=== PATIENT | female | born 1990 | race Caucasian/White ===

== ENCOUNTER 2017-03-13 12:00 | Inpatient (IN) | payer BC, OTHER ==
[~2017-03-13] VITALS: Ht 152.4 cm; Wt 52.2 kg
[2017-03-13] MEDS ORDERED: ONDA8TAB8 PO (12:27)
[2017-03-13] MEDS ORDERED: TRAZ1TAB14 PO (12:27)
[2017-03-13] MEDS ORDERED: PROP60TA14 PO (12:27)
[2017-03-13 13:59] LABS: CONTROL LINE HCG INT CTR LINE PRESENT
[2017-03-13 14:13] LABS: MEAN CORPUSCULAR HEMOGLOBIN 31.9 pg (27.0-33.0); MEAN CORPUSCULAR HGB CONC 34.6 g/dl (32.0-36.5); MEAN CORPUSCULAR VOLUME 92.4 fl (80.0-96.0); RED CELL DISTRIBUTION WIDTH 12.3 % (11.5-14.5); WHITE BLOOD COUNT 6.8 K/mm3 (4.0-10.0)
[2017-03-13 14:16] LABS: ALBUMIN/GLOBULIN RATIO 1.18 (1.00-1.93); ALKALINE PHOSPHATASE 52 U/L (45-117); ALT/SGPT 19 U/L (12-78); ANION GAP 4 MEQ/L (8-16); AST/SGOT 16 U/L (15-37); BILIRUBIN,DIRECT 0.1 MG/DL (0.0-0.2); BILIRUBIN,TOTAL 0.6 MG/DL (0.2-1.0); BLOOD UREA NITROGEN 8 MG/DL (7-18); CALCIUM LEVEL 9.1 MG/DL (8.5-10.1); CARBON DIOXIDE LEVEL 30 MEQ/L (21-32); CHLORIDE LEVEL 107 MEQ/L (98-107); CREATININE FOR GFR 0.77 MG/DL (0.55-1.02); GLOMERULAR FILTRATION RATE > 60.0 (>60); GLUCOSE, FASTING 84 MG/DL (70-105); POTASSIUM SERUM 4.6 MEQ/L (3.5-5.1); SODIUM LEVEL 141 MEQ/L (136-145); TOTAL PROTEIN 7.4 GM/DL (6.4-8.2)
[2017-03-13 14:18] LABS: METHADONE URINE NEGATIVE (NEGATIVE)
[2017-03-13] MEDS ORDERED: LORazepam 1 MG TAB PO PRN (15:15)
[2017-03-13] MEDS ORDERED: ACETAMINOPHEN TAB 650MG DOSE (2X325MG) PO PRN (15:15)
[2017-03-13] MEDS ORDERED: MAALOX 30 ML SUSP *UDC PO PRN (15:15)
[2017-03-13] MEDS ORDERED: traZODone 100 MG TAB PO PRN (15:15)
[2017-03-13] MEDS ORDERED: MOM 30ML SUSPENSION UDC PO PRN (15:15)
[2017-03-13] MEDS ORDERED: TRAZ50TA11 PO (15:31)
[2017-03-13] MEDS ORDERED: PROP60CA PO (15:31)
[2017-03-13] MEDS: SERTRALINE HCL 50 MG TAB PO SCH (18:12)
[2017-03-13 19:32] VITALS: BP 110/76
[2017-03-14 06:22] VITALS: BP 118/59
[2017-03-14] MEDS: PROPRANOLOL 60 MG LA CAP PO SCH (08:17)
[2017-03-14] MEDS: SERTRALINE HCL 50 MG TAB PO SCH (08:17)
[2017-03-14] MEDS ORDERED: PROPRANOLOL 20 MG TAB PO SCH (09:00)
--- NOTE | 2017-03-14 09:15 | HPEPDOC ---
Medical History and Physical Date of Admission Mar 13, 2017 at 15:09 History and Physical PCP: IRWIN Cole ATTENDING: Dr. Gabriel Aguirre HPI: 26yoF admitted to [facility] for PTSD with SI, being medically examined today. Pt at [place] with [employer] for 2 week training. Pt states she has some bugbites from being out in the feild and requests Benadryl cream. Denies any fevers, chills, weakness, fatigue, KERN, CP, SOB, cough, palpitations, abdominal pain, N/V/D or changes in bowel or bladder habits. 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 Tobacco use:denies ETOH: 2 drinks per week. Illicit Drugs: Denies IV Drug Use: Denies Tattoos done unprofessionally: Denies FAMHX: Mother: Alive, depression, H/O SI, DM, HTN Father: Alive, HTN Siblings: 2 sisters Alive, well Children: none Unexpected deaths due to medical reasons: None. ROS: As noted in HPI, otherwise 11pt ROS of systems reviewed and remarkable only for LMP 03/05/17. PE: GEN: 26yoF, appears stated age. Well-nourished, well developed. No acute distress. Alert and oriented x 3. Pleasant, interactive. HEENT: Normocephalic, atraumatic. Pupils are equal, round, and reactive to light. Extraocular movements are intact. No nystagmus appreciated. Sclera are nonicteric. Conjunctiva without injection. Nose midline. Nasal turbinates without bogginess. EACs both patent BL. TMs both visualized and arce with good cone of light, no bulging or erythema. No facial asymmetry. Moist mucous membranes. Dentition fair. Pharynx pink and moist, no cobblestoning. Neck supple , trachea midline. No lymphadenopathy or thyromegaly appreciated. CHEST: Regular rate and rhythm, +S1, +S2 LUNGS: Clear to auscultation bilaterally. No wheezes, rales, or rhonchi. Breathing appears symmetric and easy. Patient is speaking in full sentences. No accessory muscle use. ABD: Round, soft, non-tender, non-distended. +Bowel sounds throughout. No rebound or guarding. No costovertebral angle tenderness. EXT: Pulses 2+ bilaterally dorsalis pedis and radial. No lower extremity edema appreciated. SKIN: [place], dry, warm. Capillary refill <2sec. No rashes. A few bites are noted , no significant erythema, no drainage, no sign of infection. NEURO: Alert and oriented x 3. Cranial nerves III-XII are intact. No focal deficits appreciated. EKG: pending. A&P: 26yoF admitted to [facility] for PTSD with SI 1. Psych. Plan per Psychiatry. Obtain baseline EKG to assure the safety of psychiatric medications as they can prolong the QT interval. 2. Follow up with PCP on discharge. 3. Staff member Wendy present throughout exam. Vital Signs Vital Signs Date Time Temp Pulse Resp B/P (MAP) Pulse Ox O2 Delivery O2 Flow Rate FiO2 03/14/17 08:17 85 112/69 03/14/17 06:22 97.5 16 03/13/17 19:32 98 Room Air Laboratory Data Labs 24H Laboratory Tests 2 03/13/17 12:34: Anion Gap 4L, Glomerular Filtration Rate > 60.0, Calcium Level 9.1, Aspartate Amino Transf (AST/SGOT) 16, Alanine Aminotransferase (ALT/SGPT) 19, Alkaline Phosphatase 52, Total Bilirubin 0.6, Direct Bilirubin 0.1, Total Protein 7.4, Albumin 4.0, Albumin/Globulin Ratio 1.18, Thyroid Stimulating Hormone (TSH) 1.150, Human Chorionic Gonadotropin, Qual NEGATIVE, Salicylates Level < 1.7L, Urine Amphetamines Screen NEGATIVE, Urine Benzodiazepines Screen NEGATIVE, Urine Opiates Screen NEGATIVE, Urine Methadone Screen NEGATIVE, Acetaminophen Level < 2.0L, Urine Barbiturates Screen NEGATIVE, Urine Phencyclidine Screen NEGATIVE, Urine Cocaine Metabolite Screen NEGATIVE, Urine Cannabinoids Screen NEGATIVE, Ethyl Alcohol Level < 0.003 CBC/BMP Laboratory Tests 03/13/17 12:34 Red Blood Count 4.10, Mean Corpuscular Volume 92.4, Mean Corpuscular Hemoglobin 31.9, Mean Corpuscular Hemoglobin Concent 34.6, Red Cell Distribution Width 12.3 Home Medications Scheduled Propranolol HCl (Propranolol HCl ER) 60 Mg Cap, 60 MG PO DAILY Scheduled PRN Ondansetron (Ondansetron Odt) 8 Mg Tab, 8 MG PO for NAUSEA Trazodone HCl (Trazodone HCl) 50 Mg Tab, 50 MG PO QHS PRN for SLEEP Allergies Coded Allergies: No Known Allergies (Unverified , 03/13/17) Tianna Dwyer Mar 14, 2017 09:15
[2017-03-14] MEDS: VENLAFAXINE **XR** 37.5 MG CAPSULE PO SCH (13:32)
[2017-03-14] MEDS: diphenhydrAMINE CREAM 30GM TOP PRN ×2 (13:34→23:55)
[2017-03-14] MEDS: ONDANSETRON 4 MG ORAL DISINTEGRATING TAB (S0181) PO PRN (13:34)
[2017-03-14] MEDS ORDERED: HALOPERIDOL 5 MG/ML VIAL (J1630) IM STA (14:52)
[2017-03-14] MEDS ORDERED: LORazepam 2 MG/ML VIAL (J2060) IV STA (14:52)
[2017-03-14] MEDS ORDERED: HALOPERIDOL 5 MG/ML VIAL (J1630) As Ordered ONE (14:54)
[2017-03-14] MEDS ORDERED: LORazepam 2 MG/ML VIAL (J2060) As Ordered ONE (14:54)
[2017-03-14] MEDS ORDERED: LORazepam 2 MG/ML VIAL (J2060) IM STA (15:02)
[2017-03-14 18:00] VITALS: BP 119/71
--- NOTE | 2017-03-14 22:42 | ECGEPIP ---
Stationary ECG Study [facility] Test Date: 2017-03-14 Pat Name: DAI COLE Department: Room: [place] [address] Gender: F Spot Man: DILMA : 1990 Requested By: Tianna Dwyer Order Number: [id number] Reading MD: Gabriel Toussaint Measurements Intervals [place] Rate: 76 P: 46 NV: 130 QRS: 83 QRSD: 97 T: 62 QT: 385 QTc: 435 Interpretive Statements SINUS RHYTHM within normal limits. No prior ECG available for comparison at the time of interpretation. Electronically Signed On 03-14-2017 22:41:45 EDT by Gabriel Toussaint
[2017-03-14] MEDS: traZODone 50 MG TAB PO PRN (23:50)
[2017-03-15 07:04] VITALS: BP 106/59
[2017-03-15] MEDS: VENLAFAXINE **XR** 37.5 MG CAPSULE PO SCH (08:08)
[2017-03-15] MEDS: PROPRANOLOL 60 MG LA CAP PO SCH (08:08)
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
[2017-03-15 18:00] VITALS: BP 113/62
[2017-03-16 06:21] VITALS: BP 118/65
[2017-03-16] MEDS: ONDANSETRON 4 MG ORAL DISINTEGRATING TAB (S0181) PO PRN (07:27)
[2017-03-16] MEDS: PROPRANOLOL 60 MG LA CAP PO SCH (08:07)
[2017-03-16] MEDS: VENLAFAXINE **XR** 37.5 MG CAPSULE PO SCH (08:07)
[2017-03-16 18:00] VITALS: BP 116/68
[2017-03-16] MEDS: traZODone 50 MG TAB PO PRN (22:45)
--- NOTE | 2017-03-16 23:46 | IPN ---
DATE OF SERVICE: 03/15/2017 CHIEF COMPLAINT: Says feels okay. SUBJECTIVE: Seen for followup in the presence of staff. Says feels okay, and that she is less anxious, less depressed, says sleeps well. MENTAL STATUS EXAMINATION: Neat, cooperative, though somewhat superficially so, coherent. No agitation. No psychomotor retardation. Affect is restricted in range, but shows reactivity. She denies any suicidal thoughts or intents. No evidence of any homicidal ideas or intents, nor of any psychosis. Cognition is grossly intact. Her judgment and insight appear to be fair. ASSESSMENT: 1. Major depressive disorder, recurrent. 2. Posttraumatic stress disorder. PLAN: Continue current care, and observations, encourage participation in activities in the unit.
[2017-03-17 07:05] VITALS: BP 134/86
[2017-03-17] MEDS: VENLAFAXINE **XR** 37.5 MG CAPSULE PO SCH (08:38)
[2017-03-17] MEDS: PROPRANOLOL 60 MG LA CAP PO SCH (08:38)
--- NOTE | 2017-03-17 09:08 | IPN ---
DATE: 03/16/2017 CHIEF COMPLAINT: Says feels okay. SUBJECTIVE: Is seen for followup in the presence of staff. Says feels okay and that her moods have been good. Says she slept well. Appetite has been good. Denies any nightmares. MENTAL STATUS EXAMINATION: Neat, cooperative, though a bit superficially so. She is coherent. No agitation. No psychomotor retardation. Answers questions logically and briefly. Affect is restricted but reactive. Denies any thoughts of harming herself or anyone else. Currently, no evidence of psychosis. Cognition is grossly intact. Her judgment is fair, as is insight. ASSESSMENT: 1. Posttraumatic stress disorder (PTSD). 2. Major depressive disorder. PLAN: Continue current care and observations and the Effexor may need to be increased. Encourage participation in activities in the unit. She says that she plans to return to see her therapist upon discharge.
[2017-03-17 18:03] VITALS: BP 106/59
--- NOTE | 2017-03-17 19:42 | IPN ---
DATE: 03/17/2017 VITAL SIGNS: Temperature 96.9, pulse 99, respirations 18, blood pressure 134/86. CURRENT MEDICATIONS: - Effexor XR 37.5 mg every morning - trazodone 50 mg nightly as needed HISTORY OF PRESENT ILLNESS: Patient became agitated Friday afternoon and almost had to be restrained and given intramuscular (IM) medication. She did settle down fortunately. She did cooperate with the medications over the weekend. She did take the Effexor, she did have some nausea from it, but this was tolerable. Patient urged to take the Effexor with food. She has had no other side effects from it. Patient is confronted as to her primitive coping skills. Her chain of command had been contacted by phone and he confirmed that she has frequent "temper tantrums" while on duty in the [employer]. Patient gives permission for discharge planning staff to contact her supports in the [facility] where she comes from and to have a chain of command meeting. Patient states that her mood was reasonably good over the weekend, she had no suicidal thoughts. She denies any suicidal plans. MENTAL STATUS EXAMINATION: Affect is somewhat subdued, especially compared to last Friday. She is not agitated. Insight and judgment appear fair. She does not appear a danger to self or others. Anxiety is mild. Dysphoria is mild. She denies overt depression. Grooming and hygiene appears good. No current signs of dangerousness or impulsivity. No signs of memory deficits. IMPRESSION: 1. Major depression, recurrent. 2. Posttraumatic stress disorder (PTSD). 3. Panic anxiety disorder. 4. Agoraphobia. PLAN: Continue Effexor XR at this low dosage given her small size and the fact that she did have some significant nausea. The Effexor dose can be increased upon discharge when she returns to her community. Staff will start to work on discharge planning possibly as early as tomorrow or Friday.
[2017-03-17] MEDS: ONDANSETRON 4 MG ORAL DISINTEGRATING TAB (S0181) PO PRN (22:06)
[2017-03-17] MEDS: traZODone 50 MG TAB PO PRN (22:06)
[2017-03-18 06:27] VITALS: BP 103/57
[2017-03-18 08:29] VITALS: BP 116/77
[2017-03-18] MEDS: VENLAFAXINE **XR** 37.5 MG CAPSULE PO SCH (08:29)
[2017-03-18] MEDS: PROPRANOLOL 60 MG LA CAP PO SCH (08:29)
[2017-03-18] MEDS ORDERED: VENL37.52 PO (09:51)
--- NOTE | 2017-03-19 08:28 | MHDS ---
DATE OF ADMISSION: 03/13/2017 DATE OF DISCHARGE: 03/18/2017 Vital signs: Temperature 98.3, pulse 62, respirations 20, blood pressure 103/57. LABORATORY: CBC and differential within normal limits. Chemistry within normal limits. Toxicology negative. Ethyl alcohol negative. DISCHARGE MEDICATIONS: - Effexor XR 37.5 mg daily every morning DISCHARGE DIAGNOSIS: Major depression recurrent, moderate severity. Posttraumatic stress disorder. Panic anxiety disorder with agoraphobia. CHIEF COMPLAINT: Depression with suicidal ideation. HISTORY OF PRESENT ILLNESS: This is a 26-year-old white female in the [employer] here at [place] for her 2 week annual training. Patient is seen on walk in basis at [place] in a depressed state. She reported suicidal ideation with anxiety. Patient was seen by Dr. Shaffer who was concerned about her depression and suicidality. Patient reported recent anger, irritability, anxiety and dysphoria. She was not able to contract for safety. She has history of panic attacks with some agoraphobia. 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 Patient reported that she does not like to take psychotropics. Patient has had three previous hospitalizations in [facility] and in [place]. Those records are not available. HOSPITAL COURSE: Patient was very agitated the day of admission. She stormed around demanding to leave here. She was quite oppositional and defiant. She claimed that she would sneak off the unit following a staff member. Her Chain of Command was contacted who supported her staying in treatment here on the inpatient psychiatry unit. He informed staff that she has a history of "temper tantrums" and this is not unusual behavior for her. Patient was confronted as to her inappropriate behavior. She eventually settled down and was reasonably cooperative. She did attend groups. She was compliant with low dose Effexor XR. She does have a history of nausea. She has been given Zofran over at [place] which was quite helpful. Patient was urged to take the Effexor in the morning after having a full breakfast which would minimize any nausea. Patient's behavior improved markedly though she was still somewhat sullen. She showed no further outbursts. She showed no further signs of being a danger to self or others. Insight and judgment did appear somewhat improved. No further signs of impulsivity. She denied any psychotic symptoms. She gave permission to contact her outpatient therapist who concurred that she would be safe for discharge with outpatient followup. MENTAL STATUS EXAMINATION: At time of discharge, affect was still somewhat sullen but on the unit, she was smiling and socializing well with her peers. She was not suicidal, not homicidal. Insight and judgment seemed improved. No signs of psychosis. Not hearing voices. No paranoia or thought disorder. Grooming and hygiene was good. No signs of cognitive deficits. ASSESSMENT: Patient appears to be a good candidate for Effexor. She does have a history of nausea which, however, might interfere with her compliance on the psychotropic. She claims that she would be willing to take the Effexor for a period of time upon discharge and followup with outpatient mental health services. PLAN: Discharge today after Chain of Command meeting. Followup at [facility] for safety check.
== END 2017-03-18 13:00 | disposition home or self-care (01) | DRG 751 ==
LOC: M ED 12:00 → M ED INP 15:09 → M PSY 17:15
PROVIDERS: ADMIT Psychiatry & Neurology Psychiatry; ATTEND Psychiatry & Neurology Psychiatry
DX: F33.1 Major depressive disorder, recurrent, moderate (principal); F43.10 Post-traumatic stress disorder, unspecified; Z91.410 Personal history of adult physical and sexual abuse; F40.01 Agoraphobia with panic disorder; Z79.899 Other long term (current) drug therapy; Z81.8 Family history of other mental and behavioral disorders